=== PATIENT | male | born 1945 | race Caucasian/White ===

== ENCOUNTER 2020-05-28 12:47 | Inpatient (IN) | payer MEDICARE, SELFPAY ==
[~2020-05-28] VITALS: Ht 170.2 cm; Wt 108.0 kg
[~2020-05-28 12:47] MED LIST: ASPIRIN CHEWABL81 MG PO; FLEXERIL 10 MG10 MG PO; FUROSEMIDE20 MG PO; ISOSORBIDE MONO60 MG PO; LOVASTATIN20 MG PO; NITROSTAT 0.425 TAB SL; PLAVIX 75 MG TA75 MG PO; PROPRANOLOL HCL40 MG PO; TOPAMAX25 MG PO; [UNRECOGNIZED DRUG - OTHER]
[2020-05-28 14:14] LABS: HEMOGLOBIN 14.1 gm/dl (14.0-17.5); RED BLOOD COUNT 4.43 M/UL (4.20-5.50); WHITE BLOOD COUNT 4.7 K/UL (4.5-11.0)
[2020-05-28] MEDS ORDERED: ZESTRIL5 MG PO (16:17)
[2020-05-29 05:52] LABS: HEMOGLOBIN 15.2 gm/dl (14.0-17.5); RED BLOOD COUNT 4.86 M/UL (4.20-5.50); WHITE BLOOD COUNT 4.9 K/UL (4.5-11.0)
[2020-05-29 06:09] LABS: BUN/CREATININE RATIO 23 (0-10)
[2020-05-30 04:48] LABS: BUN/CREATININE RATIO 28 (0-10)
[2020-05-31 06:35] LABS: BUN/CREATININE RATIO 32 (0-10)
[2020-06-02 03:44] LABS: HEMOGLOBIN 14.1 gm/dl (14.0-17.5); RED BLOOD COUNT 4.47 M/UL (4.20-5.50); WHITE BLOOD COUNT 9.1 K/UL (4.5-11.0)
[2020-06-02 04:13] LABS: BUN/CREATININE RATIO 39 (0-10)
[2020-06-02] MEDS ORDERED: DEXAMETHASONE6 MG PO (10:33)
[2020-06-02] MEDS ORDERED: IPRAT-ALBUT 0.5-3 ML INH (10:36)
--- NOTE | 2020-06-02 15:59 | NUR ---
PT REFUSED TO WAIT UNTIL AFTER LAST DOSE OF REMDISIVIR BEFORE DISCHARGE. HE STATED THAT HIS RIDE WAS ALREADY HERE AND HE WANTED TO LEAVE NOW. PT WAS EDUCATED ON IMPORTANCE OF RECEIVING ALL DOSES OF THIS MED BUT STILL INSISTED ON LEAVING BEFORE MED ADMINISTERED.
== END 2020-06-02 14:29 | disposition home or self-care (01) | DRG 177 ==
LOC: ER1 12:47 → MED SURG 4 15:38 → CDU 15:38 → MED SURG 4 19:55
PROVIDERS: Emergency Medicine; Internal Medicine; ADMIT Internal Medicine
PROC: XW033E5 Introduction of Remdesivir Anti-infective into Peripheral Vein, Percutaneous Approach, New Technology Group 5 (ICD-10-PCS; 2020-05-28)
PROC: 8E0ZXY6 Isolation (ICD-10-PCS; 2020-05-28)
PROC: XW13325 Transfusion of Convalescent Plasma (Nonautologous) into Peripheral Vein, Percutaneous Approach, New Technology Group 5 (ICD-10-PCS; principal; 2020-05-30)
DX: U07.1 COVID-19 (principal); J12.82 Pneumonia due to coronavirus disease 2019; J96.01 Acute respiratory failure with hypoxia; E66.01 Morbid (severe) obesity due to excess calories; H91.90 Unspecified hearing loss, unspecified ear; I25.10 Atherosclerotic heart disease of native coronary artery without angina pectoris; R25.1 Tremor, unspecified; I10 Essential (primary) hypertension; Z68.37 Body mass index [BMI] 37.0-37.9, adult; Z95.0 Presence of cardiac pacemaker; Z79.02 Long term (current) use of antithrombotics/antiplatelets; Z79.82 Long term (current) use of aspirin; Z79.899 Other long term (current) drug therapy
CPT/HCPCS: 0240U; 36415; 36600; 71045; 80048; 80053; 81001; 82550; 82553; 82728; 82803; 83605; 83874; 83880; 84484; 85025; 85379; 85610; 86140; 86900; 86901; 86927; 87040; 93005; 94760; 99285; J0696; J1100; J1650; J7030; J7050

== ENCOUNTER → 2020-07-09 | Outpatient (CLI) | payer MEDICARE, SELFPAY ==
[~2020-07-09] MED LIST changes: +DEXAMETHASONE6 MG PO; +IPRAT-ALBUT 0.5-3 ML INH; +ZESTRIL5 MG PO
== END ==
LOC: EXRD 10:37
DX: J90 Pleural effusion, not elsewhere classified (principal); Z86.16 Personal history of COVID-19
CPT/HCPCS: 71046

== ENCOUNTER → 2020-07-21 | Outpatient (CLI) | payer MEDICARE, SELFPAY | LOC: KOH-I 07-19 11:00 → CT 10:43 | DX: R09.02 Hypoxemia (principal); R91.8 Other nonspecific abnormal finding of lung field; Z86.16 Personal history of COVID-19; R59.0 Localized enlarged lymph nodes | CPT/HCPCS: 36600; 71250; 82803 ==

== ENCOUNTER → 2020-08-05 | Outpatient (CLI) | payer MEDICARE, SELFPAY | LOC: ECHO 10:40 | DX: Z86.79 Personal history of other diseases of the circulatory system (principal); I07.1 Rheumatic tricuspid insufficiency; Z95.0 Presence of cardiac pacemaker | CPT/HCPCS: ECHO; 93306 ==

== ENCOUNTER → 2020-08-13 | Outpatient (CLI) | payer MEDICARE, SELFPAY | LOC: HEART 5 11:41 | DX: I50.22 Chronic systolic (congestive) heart failure (principal); I25.10 Atherosclerotic heart disease of native coronary artery without angina pectoris; Z95.0 Presence of cardiac pacemaker; Z86.16 Personal history of COVID-19; Z86.79 Personal history of other diseases of the circulatory system; E78.5 Hyperlipidemia, unspecified | CPT/HCPCS: 94060; 94729 ==

== ENCOUNTER → 2020-11-10 | Outpatient (CLI) | payer MEDICARE, OTHER | LOC: CT 10:05 | DX: J84.10 Pulmonary fibrosis, unspecified (principal); R09.02 Hypoxemia; R59.9 Enlarged lymph nodes, unspecified; J43.2 Centrilobular emphysema | CPT/HCPCS: 36600; 71250; 82803 ==

== ENCOUNTER → 2020-11-26 | Outpatient (CLI) | payer MEDICARE | LOC: HEART 5 11:29 | DX: J84.112 Idiopathic pulmonary fibrosis (principal) | CPT/HCPCS: 94060; 94729 ==